=== PATIENT | male | born 1980 | race Caucasian/White ===

== ENCOUNTER → 2018-01-19 11:17 | Outpatient (CLI) | payer BC, SELFPAY ==
[2018-01-19 11:39] LABS: Basophils # 0.1 K/mm3 (0-0.2); Basophils % 1.1 % (0.1-2.0); Eosinophils # 0.3 K/mm3 (0.0-0.4); Hemoglobin 16.3 g/dL (14.1-18.0); Lymphocytes # 1.9 K/mm3 (0.7-4.5); Lymphocytes % 36.1 K/mm3 (10-50); Mean Corpuscular Hemoglobin 30.7 pg (27.0-31.2); Mean Corpuscular Volume 90.3 fl (80-94); Mean Platelet Volume 7.2 fl (7.4-10.4); Monocytes # 0.3 K/mm3 (0.1-1.0); Monocytes % 6.5 % (1.7-9.3); Neutrophils # 2.7 K/mm3 (1.8-7.8); Neutrophils % 51.2 % (37.0-80.0); Platelet Count 265 K/mm3 (142-424); Red Blood Count 5.32 M/mm3 (4.60-6.20); Red Cell Distribution Width 12.5 % (11.5-17.5); White Blood Count 5.3 K/mm3 (4.8-10.8)
[2018-01-19 12:01] LABS: Alanine Aminotransferase 61 U/L (12-78); Albumin Level 3.9 gm/dL (3.4-5.0); Alkaline Phosphatase 93 U/L (46-116); Anion Gap 12.2 mEq/L (5-15); Aspartate Amino Transferase 20 U/L (15-37); Bilirubin,Total 0.4 mg/dL (0.2-1.0); Blood Urea Nitrogen 17 mg/dL (7-18); CKMB Relative Index 0.3 U/L (0-4.0); Calcium 8.9 mg/dL (8.5-10.1); Carbon Dioxide 26 mmol/L (21.0-32.0); Chloride 106 mmol/L (98-107); Creatine Kinase 333 U/L (39-308); Creatinine,Serum 1.12 mg/dL (0.70-1.30); Estimated Glomerular Filt Rate 74 ml/min (>60); GFR (African American) 89 ML/MIN (>60); Globulin 3.9 gm/dl (1.3-3.2); Glucose 108 mg/dL (74-106); Potassium 4.2 mmoL/L (3.5-5.1); Sodium 140 mmol/L (136-145); Total Protein,Serum 7.8 gm/dL (6.4-8.2); Troponin I < 0.02 ng/ml (0.00-0.06)
[2018-01-21 09:29] LABS: Vitamin D 25 Hydroxy 39.5 ng/mL (30.0-100.0)
== END ==
PROVIDERS: Visit Provider Family Medicine
DX: R07.9 Chest pain, unspecified (principal); R06.02 Shortness of breath; E55.9 Vitamin D deficiency, unspecified
CPT/HCPCS: 36415; 80053; 82550; 82553; 82652; 84443; 84484; 85025; 93005

== ENCOUNTER → 2018-01-21 07:59 | Outpatient (CLI) | payer BC, SELFPAY | PROVIDERS: Family Provider Family Medicine; PCP Family Medicine; Visit Provider Family Medicine | DX: R07.9 Chest pain, unspecified (principal) | CPT/HCPCS: 93017 ==

== ENCOUNTER → 2019-01-05 09:49 | Outpatient (CLI) | payer BC, SELFPAY | PROVIDERS: PCP Family Medicine; Visit Provider Physician Assistant | DX: R06.02 Shortness of breath (principal) | CPT/HCPCS: 94060; 94727; 94729 ==

== ENCOUNTER → 2019-01-14 08:09 | Outpatient (CLI) | payer BC, SELFPAY ==
--- NOTE | 2019-01-14 08:12 | CA_ITS ---
PROCEDURE: 2-D M-mode and color Doppler study INDICATIONS FOR THE TEST: Chest pain + COPD Heart Murmur Tobacco Smoking Palpitations Fatigue Syncope Edema Hypertension+Diabetes Mellitus Rheumatic Fever SOB+LEES Obesity Hyperlipidemia Family History HD Additional History PATIENT INFORMATION HEIGHT: 70 WEIGHT:230 GENDER: Male B/P: 2-D/M-MODE INTERPRETATION: 2-D MEASUREMENTS OBSERVED VALUES IN CMS Right Ventricular Dimension (RVDd) 2.2 Interventricular Septum (Thickness)(IVsd) 1.0 Left Ventricular Internal Dimensions(LVIDd) 5.3 Left Ventricular Posterior Wall (Thickness)(LVPWd) 0.7 Aortic Root 3.6 Aortic Cusp Separation 2.2 Left Atrial Dimensions (LAD) 3.8 2D 1. Left atrium is normal size, left ventricle is normal size, there is no concentric left ventricular hypertrophy, visually estimated ejection fraction 55% with no regional wall motion abnormality. 2. The right atrium and right ventricle are normal size and contractility. 3. The aortic, mitral , tricuspid and pulmonic valves are grossly normal. 4. No significant pericardial effusion noted. DOPPLER INTERROGATION: Doppler interrogation of the aortic, mitral and tricuspid valvular presence of trace mitral and tricuspid regurgitation, calculated right ventricular systolic pressure is within normal range. Diastolic parameters are within normal range. CONCLUSION: 1. Normal left ventricular size, preserved left ventricular systolic function, visually estimated ejection fraction 55% with no regional wall motion abnormality, diastolic parameters are within normal range. 2. Trace mitral and tricuspid regurgitation. Calculated right ventricular systolic pressure is within normal range. 3. No significant pericardial effusion noted
== END ==
PROVIDERS: PCP Family Medicine; Visit Provider Physician Assistant
DX: R06.02 Shortness of breath (principal)
CPT/HCPCS: 93306

== ENCOUNTER → 2019-01-28 07:31 | Outpatient (CLI) | payer BC, SELFPAY ==
--- NOTE | 2019-01-28 07:33 | CT_ITS ---
CT chest wo/w con HISTORY: Follow-up nodule, shortness of air, chest pain ITS.REASON: lung nodules ORDERING PHYSICIAN: Primo Barnes MD PATIENT AGE: 38 years COMPARISON: 01/07/2017 Technique: Axial images obtained without and following the administration of 75 mL of Optiray 350 . Sagittal, and coronal reformatted images are also generated and reviewed. All CT scans at the facility use one or more dose reduction, viz: automated exposure control, ma/kV adjustment per patient size (including targeted exams where dose is matched to indication, i.e. head), or iterative reconstruction technique. FINDINGS: There are few small nodes in the axilla. No mediastinal or hilar mass or adenopathy is evident. There is mild thickening of the distal esophagus nonspecific could be seen with reflux. There is mild prominence of the interstitial markings. A 6 mm nodule is once again noted in the right middle lobe. This is noncalcified. The nodule may be very slightly more prominent. This however could be related to slice orientation. No new nodules are evident. No effusions or infiltrates. Abdominal images are unremarkable. No acute bony findings. IMPRESSION: 1. Persistent right middle lobe nodule measuring approximately 6 mm and may be very slightly more prominent than when compared to the previous study. This however is questionable. Continued follow-up is suggested. 2. Mild prominence of the interstitium. 3. Possible esophagitis
--- NOTE | 2019-01-28 07:33 | NM_ITS ---
CARDIOLITE SPECT MYOCARDIAL PERFUSION [facility], REST AND STRESS: History: Hypertension, chest pain, shortness of breath, palpitations and syncope and fatigue Procedure: Should exercised on Wild protocol 11 minutes and 3 seconds, resting heart rate was 57 bpm resting blood pressure 119/71, with exercise maximum heart rate achieved was 1 68 bpm which is greater than 85% of the maximum] heart rate and a blood pressure was 157/54. Test was stopped due to shortness of breath, patient denied any complained of chest pain. Patient has good exercise capacity achieved 12.8mets of workload on treadmill, the blood pressure response to exercise was adequate. Electrocardiogram: Resting echocardiogram showed sinus rhythm, with exercise there is less than 1.[address] segment depression noted from the baseline EKG. The EKG portion of the exercise Myoview is negative for ischemia. Cardiac stress and resting SPECT images: Cardiac stress and resting SPECT images were obtained using technetium 99 Myoview 31.8 mCi at stress and 10.7 mCi at rest. Gated SPECT further analysis of segmental wall motion and calculation of the ejection fraction also done. Cardiac stress and the suspect images show uniform myocardial activity without segmental perfusion abnormality, computer derived ejection fraction is 54% with no regional wall motion abnormality. Right ventricle is normal size and contractility. Conclusion: 1. The EKG portion of the exercise Myoview is negative for ischemia, patient has good exercise capacity achieved 12.8mets of workload on treadmill, the blood pressure response to exercise was adequate, there was no exercise-induced chest discomfort. 2. No scintigraphic evidence of reversible ischemia seen at this level of exercise, computer derived ejection fraction is 54% with no regional wall motion abnormality, right ventricle is normal size and contractility. 3. Normal exercise Myoview study.
--- NOTE | 2019-01-28 09:43 | HMH.ITSHM ---
Current Home Medications as stated by this patient Irvin Bojorquez II or liability claims representative. [][facility]
== END ==
PROVIDERS: PCP Family Medicine; Visit Provider Internal Medicine
DX: R07.89 Other chest pain (principal); R06.09 Other forms of dyspnea; R94.31 Abnormal electrocardiogram [ECG] [EKG]; I10 Essential (primary) hypertension
CPT/HCPCS: 71270; 78452; 93017; A9502; Q9967

== ENCOUNTER → 2020-11-12 11:14 | Outpatient (CLI) | payer BC, SELFPAY | PROVIDERS: PCP Family Medicine; Visit Provider Family Medicine | DX: Z11.52 Encounter for screening for COVID-19 (principal) | CPT/HCPCS: U0003 ==

== ENCOUNTER → 2021-02-08 14:50 | Outpatient (CLI) | payer BC, SELFPAY | LOC: RT 14:51 | PROVIDERS: PCP Family Medicine; Visit Provider Internal Medicine Pulmonary Disease | DX: R06.09 Other forms of dyspnea (principal) | CPT/HCPCS: 94060; 94618; 94726; 94729 ==

== ENCOUNTER → 2021-03-04 14:27 | Outpatient (CLI) | payer BC, SELFPAY | PROVIDERS: PCP Family Medicine; Visit Provider Internal Medicine Pulmonary Disease | DX: R06.00 Dyspnea, unspecified (principal) | CPT/HCPCS: 94762 ==

== ENCOUNTER → 2021-06-27 14:48 | Outpatient (CLI) | payer BC, SELFPAY | PROVIDERS: PCP Family Medicine; Visit Provider Internal Medicine Pulmonary Disease | DX: R06.00 Dyspnea, unspecified (principal) | CPT/HCPCS: 94070; 95070; J7674 ==

== ENCOUNTER → 2021-08-06 09:44 | Outpatient (CLI) | payer BC, SELFPAY | PROVIDERS: PCP Family Medicine; Visit Provider Nurse Practitioner | DX: Z20.822 Contact with and (suspected) exposure to COVID-19 (principal); U07.1 COVID-19 | CPT/HCPCS: C9803; U0003; U0005 ==

== ENCOUNTER → 2021-08-07 10:23 | Outpatient (CLI) | payer BC, SELFPAY ==
[2021-08-07 11:07] LABS: Coronavirus 19 IgG Antibody Negative (Negative); Coronavirus 19 IgM Antibody Negative (Negative)
== END ==
PROVIDERS: PCP Family Medicine; Visit Provider Nurse Practitioner
DX: Z20.822 Contact with and (suspected) exposure to COVID-19 (principal)
CPT/HCPCS: 36415; 86328; C9803; U0003; U0005

== ENCOUNTER → 2021-08-21 11:46 | Outpatient (CLI) | payer BC, SELFPAY ==
--- NOTE | 2021-08-21 11:49 | XR_ITS ---
PROCEDURE: XR ANKLE LT MIN 3V CLINICAL INDICATION: INJURY OF LT ANKLE, INITIAL ENCOUNTER COMPARISON: CR ANKL3 ANKLE-LT-3 VIEWS from 03/10/2015 FINDINGS: No fracture or dislocation. No lytic or blastic change. There is normal mineralization. The joint spaces are well-preserved. No significant degenerative/arthritic changes. No erosive changes evident. Mild soft tissue swelling laterally IMPRESSION: Mild soft tissue swelling otherwise negative Dictated by: Praveen Fischer MD 08/21/2021 17:30 Praeven Fischer MD in [place] 08/21/2021 17:30
== END ==
PROVIDERS: PCP Family Medicine; Visit Provider Physician Assistant
DX: S99.912A Unspecified injury of left ankle, initial encounter (principal)
CPT/HCPCS: 73610

== ENCOUNTER → 2021-09-13 14:00 | Outpatient (CLI) | payer BC, SELFPAY | PROVIDERS: PCP Family Medicine; Visit Provider Nurse Practitioner | DX: U07.1 COVID-19 (principal) | CPT/HCPCS: C9803; U0003; U0005 ==

== ENCOUNTER 2021-09-16 09:56 | Outpatient (CLI) | payer BC, SELFPAY ==
[2021-09-16] VITALS (7 sets, daily range): BP systolic 115–134; BP diastolic 54–92; PULSE 70–87; RESP 16–18; TEMP 37.2; O2SAT 96–99
== END 2021-09-16 11:46 | disposition home or self-care (01) ==
LOC: INF 09:57
PROVIDERS: PCP Family Medicine; Visit Provider Family Medicine
DX: U07.1 COVID-19 (principal); Z23 Encounter for immunization
CPT/HCPCS: 96365

== ENCOUNTER → 2021-12-18 09:14 | Outpatient (CLI) | payer BC, SELFPAY ==
--- NOTE | 2021-12-18 09:20 | XR_ITS ---
FINAL REPORT CLINICAL HISTORY: RT WRIST INJURY PAIN, FALL FROM BARN LAST NIGHT FINDINGS: RIGHT WRIST Three views demonstrate a probable nondisplaced fracture of the dorsal distal radius. The visualized joint spaces are normally aligned. There is dorsal wrist soft tissue swelling. IMPRESSION: Probable nondisplaced fracture of the dorsal distal radius. Reviewed, Interpreted and Dictated by Severo Warren III, MD Transcribed by Gurpreet Palacios Authenticated by Severo Warren III, MD on 12/18/2021 10:28:[address] [facility]
--- NOTE | 2021-12-18 09:20 | XR_ITS ---
FINAL REPORT CLINICAL HISTORY: RT HAND INJURY PAIN, FALL FROM BARN LAST NIGHT FINDINGS: 3 views of the right hand were obtained. There is no acute fracture or dislocation. The joint spaces are intact. There is no soft tissue abnormality. IMPRESSION: No acute process. Reviewed, Interpreted and Dictated by Severo Warren III, MD Transcribed by Gurpreet Palacios Authenticated by Severo Warren III, MD on 12/18/2021 10:28:37 AM [facility]
== END ==
LOC: RAD 09:16
PROVIDERS: PCP Physician Assistant; Visit Provider Physician Assistant
DX: S69.91XA Unspecified injury of right wrist, hand and finger(s), initial encounter (principal); M25.531 Pain in right wrist
CPT/HCPCS: 73110; 73130

== ENCOUNTER → 2021-12-25 12:15 | Outpatient (CLI) | payer BC, SELFPAY ==
--- NOTE | 2021-12-25 12:18 | XR_ITS ---
FINAL REPORT CLINICAL HISTORY: right wrist fracture; OUT OF SPLINT COMPARISON: December 18, 2021 FINDINGS: RIGHT WRIST Three views demonstrate a small cortical disruption along the dorsal aspect of the distal radial metaphysis. This is stable and is probably due to a small healing fracture. The visualized joint spaces are normally aligned. The soft tissues are unremarkable. IMPRESSION: No change from previous exam. Reviewed, Interpreted and Dictated by Jordan Dong MD Transcribed by Annmarie Dior Authenticated by Jordan Dong MD on 12/25/2021 02:41:[address] [facility]
--- NOTE | 2021-12-25 12:18 | XR_ITS ---
FINAL REPORT CLINICAL HISTORY: right elbow pain FINDINGS: RIGHT ELBOW 3 views were obtained. There is no acute fracture or dislocation. The joint spaces are intact. There is no soft tissue abnormality. IMPRESSION: No acute bony abnormality. Reviewed, Interpreted and Dictated by Jordan Dong MD Transcribed by Annmarie Dior Authenticated by Jordan Dong MD on 12/25/2021 02:41:41 PM [facility]
== END ==
LOC: RAD 12:15
PROVIDERS: PCP Physician Assistant; Visit Provider Orthopaedic Surgery
DX: S52.501A Unspecified fracture of the lower end of right radius, initial encounter for closed fracture (principal); M25.521 Pain in right elbow
CPT/HCPCS: 73080; 73110

== ENCOUNTER 2021-12-25 14:15 | Outpatient (RCR) | payer BC, SELFPAY | END 2021-12-25 15:00 | disposition home or self-care (01) | LOC: OT 14:15 | PROVIDERS: Visit Provider Orthopaedic Surgery | DX: S52.521D Torus fracture of lower end of right radius, subsequent encounter for fracture with routine healing (principal) | CPT/HCPCS: 97763 ==

== ENCOUNTER → 2022-01-21 12:28 | Outpatient (CLI) | payer BC, SELFPAY ==
--- NOTE | 2022-01-21 12:31 | XR_ITS ---
FINAL REPORT CLINICAL HISTORY: distal radius fracture COMPARISON: 12/25/2021 FINDINGS: RIGHT WRIST 3 views were obtained. There is cortical disruption along the dorsal aspect of the distal radial metaphysis. This is seen only on the lateral view. The fracture line has a similar appearance as on the previous exam. The fragment is nondisplaced. IMPRESSION: No significant change as compared to the prior exam. Reviewed, Interpreted and Dictated by Jordan Dong MD Transcribed by Jailene Bragg Authenticated by Jordan Dong MD on 01/21/2022 01:53:59 PM [facility]
== END ==
LOC: RAD 12:28
PROVIDERS: PCP Physician Assistant; Visit Provider Orthopaedic Surgery
DX: S52.501A Unspecified fracture of the lower end of right radius, initial encounter for closed fracture (principal)
CPT/HCPCS: 73110

== ENCOUNTER → 2023-01-07 07:22 | Outpatient (CLI) | payer SELFPAY ==
--- NOTE | 2023-01-07 07:32 | CT_ITS ---
FINAL REPORT TECHNIQUE: Thin-section axial images were obtained through the heart and coronary arteries per CT coronary calcium score protocol. The study was performed with techniques to keep radiation doses as low as reasonably achievable (ALARA). Individual dose reduction technique using automated exposure control adjustment of mA and/or kv according to the patient's size were employed. CLINICAL HISTORY: SCREENING, chest pain, sob COMPARISON: none FINDINGS: On the axial images, there are no visible coronary artery calcifications. This gives a coronary artery calcium score of zero based on the Agatston scale. The coronary artery calcium score places the patient within the zero percentile based on age and gender. The heart size is normal. There is no pleural pericardial effusion. There is no mediastinal or hilar mass. Limited evaluation of the lungs reveals no suspicious nodule. IMPRESSION: Coronary artery score of zero, zero percentile based on age and gender. Reviewed, Interpreted and Dictated by Severo Warren III, MD Transcribed by Zahra Atkins Authenticated and [facility]
== END ==
PROVIDERS: PCP Physician Assistant; Visit Provider Physician Assistant
DX: Z13.6 Encounter for screening for cardiovascular disorders (principal)
CPT/HCPCS: 75571

== ENCOUNTER → 2023-05-20 16:41 | Outpatient (CLI) | payer BC, SELFPAY ==
--- NOTE | 2023-05-20 16:51 | ECG_ITS ---
APPROVED REPORT Exam: Resting ECG HR:68 bpm ECG Measurements Heart Rate 68 AXES LA 154 P 43 QRSd 92 QRS 55 QT 377 T 42 QTc 394 Conclusion SINUS RHYTHM NORMAL ECG UNCONFIRMED REPORT Electronically signed by : Josue Bernstein MD 05/20/2023 20:59:26
[2023-05-20 20:03] LABS: Basophils % 0.5 % (0.1-2.0); Eosinophils # 0.2 K/mm3 (0.0-0.4); Eosinophils % 2.4 % (0.1-12.0); Hematocrit 45.6 % (42.0-52.0); Hemoglobin 15.3 g/dL (14.1-18.0); Lymphocytes # 2.2 K/mm3 (0.7-4.5); Lymphocytes % 34.1 % (10-50); Mean Corpuscular HGB Conc 33.5 g/dL (31.8-35.4); Mean Corpuscular Hemoglobin 30.3 pg (27.0-31.2); Mean Corpuscular Volume 90.3 fl (80-94); Mean Platelet Volume 7.1 fl (7.4-10.4); Monocytes # 0.6 K/mm3 (0.1-1.0); Monocytes % 9.5 % (1.7-9.3); Neutrophils # 3.5 K/mm3 (1.8-7.8); Neutrophils % 53.5 % (37.0-80.0); Platelet Count 242 K/mm3 (142-424); Red Blood Count 5.04 M/mm3 (4.60-6.20); Red Cell Distribution Width 12.8 % (11.5-17.5); White Blood Count 6.5 K/mm3 (4.8-10.8)
[2023-05-20 20:32] LABS: Alanine Aminotransferase 53 U/L (12-78); Albumin Level 4.5 g/dl (3.5-5.0); Albumin/Globulin Ratio 1.6 (1.1-1.8); Alkaline Phosphatase 78 U/L (38-126); Anion Gap 12.5 mEq/L (5-15); Aspartate Amino Transferase 35 U/L (17-59); Bilirubin,Total 0.3 mg/dl (0.2-1.3); Blood Urea Nitrogen 13 mg/dl (9-20); Calcium 9.1 mg/dl (8.4-10.2); Carbon Dioxide 31 mmol/L (22.0-30.0); Chloride 102 mmol/L (98-107); Estimated Glomerular Filt Rate 73 ml/min (>60); GFR (African American) 89 ML/MIN (>60); Globulin 2.8 g/dL (1.3-3.2); Glucose 79 mg/dl (74-100); Potassium 4.5 mmoL/L (3.5-5.1); Sodium 141 mmol/L (136-145); Total Protein,Serum 7.3 g/dl (6.3-8.2)
[2023-05-20 20:39] LABS: C-Reactive Protein 1.3 mg/L (0-4)
[2023-05-26 16:24] LABS: Aspergillus flavus Negative (Neg:<1:1); Aspergillus fumigatus Negative (Neg:<1:1); Aspergillus niger Negative (Neg:<1:1); Blastomyces Antibody Negative (Neg:<1:1)
== END ==
LOC: LAB 16:42
PROVIDERS: PCP Physician Assistant; Visit Provider Internal Medicine Pulmonary Disease
DX: R06.09 Other forms of dyspnea (principal); J45.909 Unspecified asthma, uncomplicated; J84.9 Interstitial pulmonary disease, unspecified; J84.10 Pulmonary fibrosis, unspecified
CPT/HCPCS: 36415; 80053; 85025; 86140; 86480; 86606; 86612; 93005

== ENCOUNTER → 2023-05-26 11:05 | Outpatient (CLI) | payer BC, SELFPAY ==
[2023-05-28 19:23] LABS: QuantiFERON-TB Gold Plus Negative (Negative)
== END ==
PROVIDERS: PCP Physician Assistant; Visit Provider Internal Medicine Pulmonary Disease
DX: J84.10 Pulmonary fibrosis, unspecified (principal)
CPT/HCPCS: 36415; 86480

== ENCOUNTER 2023-06-01 08:39 | Day surgery (SDC) | payer BC, SELFPAY ==
[2023-05-28 10:12] VITALS: BMI 31.4
[2023-06-01] VITALS (11 sets, daily range): BP systolic 116–126; BP diastolic 65–84; PULSE 68–89; RESP 15–20; TEMP 36.1–36.3; O2SAT 93–99
--- NOTE | 2023-06-01 09:26 | EXP.ANES.CKL ---
[facility] Disclaimer: The information contained in this section may have been updated after the patient was seen, as this information can be updated by other users. Medical History Fibromyalgia Hilar lymphadenopathy History of COVID-19 Hypertension Lung nodule Mediastinal lymphadenopathy Shortness of breath Surgical History H/O elbow surgery H/O wrist surgery Family History Other Hypertension Lung cancer Social History Smoking Status: Never smoker alcohol intake: never substance use type: former substance user current occupational status: employed Travel in the last 8 weeks: None [facility] Anesthesia Checklist Patient Identification Patient Identification: Arm Band and Verbal (Name & ) Structural Data Admitted From: Home Planned Operative Procedure/s: Bronchoscopy Consent for Planned Operative Procedure(s) Verified: Yes NPO Status Verified Time NPO: 00:00 Chart Verification Results Verified: CBC and BMP Additional verifications Anesthesia Reactions: No Hx Blood Transfusions: No Airway Assessment C-Spine Mobility Assessed: Yes TMJ Mobility Assessed: Yes Dentition: Good Dentition (MP 4) Neurological Assessment Level of Consciousness: Awake Hx Seizures: No Numbness or tingling in extremities: No Anesthesia Plan Anesthesia Risk discussed: Yes Anesthesia Plan: Verified ASA Class: II Anesthesia Type: General
[2023-06-01 09:28] LABS: Basophils % 0.6 % (0.1-2.0); Eosinophils # 0.1 K/mm3 (0.0-0.4); Eosinophils % 1.9 % (0.1-12.0); Hematocrit 49.1 % (42.0-52.0); Hemoglobin 16.3 g/dL (14.1-18.0); Lymphocytes # 2.4 K/mm3 (0.7-4.5); Lymphocytes % 32.9 % (10-50); Mean Corpuscular HGB Conc 33.2 g/dL (31.8-35.4); Mean Corpuscular Hemoglobin 30.2 pg (27.0-31.2); Mean Corpuscular Volume 91.2 fl (80-94); Mean Platelet Volume 7.5 fl (7.4-10.4); Monocytes # 0.6 K/mm3 (0.1-1.0); Neutrophils % 55.5 % (37.0-80.0); Platelet Count 241 K/mm3 (142-424); Red Blood Count 5.39 M/mm3 (4.60-6.20); Red Cell Distribution Width 13.1 % (11.5-17.5); White Blood Count 7.2 K/mm3 (4.8-10.8)
[2023-06-01 09:30] LABS: Anion Gap 10.2 mEq/L (5-15); Blood Urea Nitrogen 14 mg/dl (9-20); Carbon Dioxide 25 mmol/L (22.0-30.0); Chloride 109 mmol/L (98-107); Creatinine Clearance Estimated 139 mL/min (50-200); Estimated Glomerular Filt Rate 82 ml/min (>60); GFR (African American) 99 ML/MIN (>60); Glucose 108 mg/dl (74-100); Potassium 4.2 mmoL/L (3.5-5.1); Sodium 140 mmol/L (136-145)
--- NOTE | 2023-06-01 12:16 | P.PNANES_ITS ---
[facility] Anesthesia Record Part I Anesthesia Record I Intake, IV Amount: 1,000 Estimated blood loss (mL): 15 Urine output (mL): 0 Blood Pressure: 125/69 SaO2: 93 Pulse Rate: 82 Respiratory Rate: 20 Temperature: 97 F Patient is:: Drowsy and Oral/Nasal airway Stable to PACU at:: 12:20
--- NOTE | 2023-06-01 13:04 | XR_ITS ---
FINAL REPORT CLINICAL HISTORY: post procedure- BRONCHOSCOPY WITH BIOPSY COMPARISON: 01/28/2019 dye range operator film FINDINGS: A single portable view of the chest was obtained. The heart size and pulmonary vascularity are within normal limits. The mediastinum is within normal limits. No acute pulmonary abnormality is identified. No pneumothorax. The bony thorax is intact. IMPRESSION: No active cardiopulmonary disease. Reviewed, Interpreted and Dictated by Severo Warren III, MD Transcribed by Zahra Atkins Authenticated and . [facility]
--- NOTE | 2023-06-01 13:10 | XR_ITS ---
FINAL REPORT CLINICAL HISTORY: BRONCHOSCOPY fluoro time 147 seconds FINDINGS: A single fluoroscopic spot film was obtained for bronchoscopy. 147 seconds of fluoroscopy time was reported. IMPRESSION: 147 seconds of fluoroscopy time. Reviewed, Interpreted and Dictated by Severo Warren III, MD Transcribed by Haritha Serna Authenticated and [facility]
--- NOTE | 2023-06-01 13:40 | EXP.BRONCH.N ---
Procedure: Date: 06/01/23 Patient Date of :: 1980 Procedure Performed:: Bronchoscopy airway examination, bronchoalveolar lavage, transbronchial see endobronchial ultrasound-guided fine-needle aspiration of lymph node Indications:: Lung nodule and lymphadenopathy Performing Provider:: Rosalba Gauthier MD Referring Provider:: Yuki Sow Sedation:: General anesthesia Procedure:: Bronchoscopy airway examination, bronchoalveolar lavage, transbronchial see endobronchial ultrasound-guided fine-needle aspiration of lymph node: A clean EBUS bronchoscopy was advanced the ET tube and lymph node surveillance was performed. Patient noted lymphadenopathy at stations 10 L, 7 and 10 R. A total of 7 passes were performed at station. FNA samples along with cytopathology were also sent in Rosaprks medium for flow cytometry eveluaiton. FNA samples were also sent for bacterial fungal AFB stains and cultures in 2 separate soy brought medium. EBUS bronchoscopy was retracted and a clean DIAGNOSTIC bronchoscopy was advanced through the ET tube and airways were examined up to subsegmental bronchi. Airways appeared grossly normal, no evidence of mucoid secretions, mucous plugging active bleeding/old blood clots noted. Bronchoalveolar lavage was performed in the RIGHT MIDDLE LOBE with instillation of 60 cc normal saline with return of 30 cc back. BAL fluid was sent for cell count and differential along with bacterial fungal and AFB stain and cultures along with cytopathology. Transbronchial biopsy was performed in the RIGHT MIDDLE LOBE with a total of 7 biopsies performed, 5 biopsy specimens were sent in formalin for cytopathologic examination. The other 2 biopsy samples, were sent one each in two separate normal saline specimen cups for bacterial fungal and AFB stain cultures. Special request was also made for the pathologist to evaluate for AFB and fungal organisms on the cytopathologic examination. Patient tolerated the procedure with no immediate acute complications. We will follow the patient in pulmonary clinic in 7 to 10 days. Findings:: Please see the procedure note Recommendations:: Postoperative bronchoscopy instructions. Follow in pulmonary clinic in 5 to 7 days Complications:: No acute immediate complication Estimated blood obtained (mL): 10
--- NOTE | 2023-06-01 13:54 | SUR.PHASEII ---
per dr. guerrier pt to continue all home meds
--- NOTE | 2023-06-03 07:46 | EXP.ANES.II ---
[facility] Anesthesia Record Part II Anesthesia Record Part II Discharge Time: 12:59 Destination: Surgical Day Care (OP Surgery) PACU nurse assessment reviewed?: Yes Patient Condition:: Good Anesthesia Complications:: None Swallowing reflex intact?: Yes Cyanosis?: No Blood Pressure: 122/65 Pulse Rate: 81 Temperature: 97.4 F Mental Status: Alert & Oriented Pain level:: 0 Nausea and/or vomitting:: None Intake, IV Amount: 0
[2023-06-03 07:47] VITALS: BP 122/65; PULSE 81; TEMP 36.3
== END 2023-06-01 14:05 | disposition home or self-care (01) ==
PROVIDERS: PCP Physician Assistant; Visit Provider Internal Medicine Pulmonary Disease
PROC: (CPT 31624; principal; 2023-06-01 10:00)
DX: R06.2 Wheezing (principal); R06.09 Other forms of dyspnea; R06.02 Shortness of breath; R91.1 Solitary pulmonary nodule; R59.0 Localized enlarged lymph nodes; R93.89 Abnormal findings on diagnostic imaging of other specified body structures
CPT/HCPCS: 31624; 31628; 31653; 71045; 80048; 85025; 87070; 87077; 87102; 87116; 87186; 87205; 87206; 89051